=== PATIENT | male | born 1960 | race African-American/Black ===

== ENCOUNTER 2019-12-20 06:05 | Day surgery (SDC) | payer OTHER ==
[2019-12-18 17:07] VITALS: BMI 26.6
[2019-12-20] MEDS ORDERED: LIDOCAINE 1%-EPI 1:100,000 30 ML MDV IJ ONE (07:11)
[2019-12-20] MEDS ORDERED: BACITRACIN 15 GM TUBE TOPICAL OINTMENT ONE (07:11)
[2019-12-20] MEDS ORDERED: POVIDONE-IODINE OINTMENT 10% - 28.4 GM TUBE ONE (07:15)
[2019-12-20] MEDS ORDERED: BACITRACIN 15 GM TUBE TOPICAL OINTMENT TP ONE (07:39)
[2019-12-20] MEDS ORDERED: EPHEDRINE SULFATE/0.9% NACL/PF 50 MG/10 ML SYRINGE NR ONE (07:41)
[2019-12-20] MEDS ORDERED: MIDAZOLAM HCL 2 MG/2 ML SINGLE DOSE VIAL ONE (07:41)
[2019-12-20] MEDS ORDERED: ceFAZolin SODIUM 1 GM VIAL ONE (07:41)
[2019-12-20] MEDS ORDERED: PROPOFOL 20 ML ONE ×2 (07:41)
[2019-12-20] MEDS ORDERED: LIDOCAINE HCL/PF 2% SDV 5ML VIAL ONE (07:41)
--- NOTE | 2019-12-20 08:13 | HP ---
History & Physical Update - History History: No Change - Physical Physical: No Change - Assessment Assessment: No Change - Plan Plan: No Change
[2019-12-20] MEDS ORDERED: KETAMINE HCL 200 MG/20 ML VIAL ONE (08:19)
[2019-12-20] MEDS ORDERED: ceFAZolin SODIUM 1 GM VIAL IVPB ONE (08:26)
[2019-12-20] MEDS ORDERED: BENZOIN/ALOE VERA/STORAX/TOLU 58 ML BOTTLE ONE (08:48)
[2019-12-20] MEDS ORDERED: BENZOIN/ALOE VERA/STORAX/TOLU 58 ML BOTTLE TP ONE (08:50)
--- NOTE | 2019-12-20 09:07 | OP ---
Operative Note - Note: Operative Date: 12/20/19 Pre-Operative Diagnosis: right occipital mass Operation: Excision right occipital mass Findings: 3 cm fibrofatty mass, likely lipoma Post-Operative Diagnosis: Same as Pre-op Surgeon: Emir Melo Anesthesia: Local, MAC Specimens Removed: lipoma Estimated Blood Loss (mls): 1 Operative Report Dictated: Yes
[2019-12-20 09:31] VITALS: TEMP 97.7
[2019-12-20 10:27] VITALS: BP 120/70; PULSE 80
--- NOTE | 2019-12-20 11:23 | OP ---
DATE OF OPERATION: 12/20/2019 PROCEDURE: Excisional biopsy of occipital mass. PREOPERATIVE DIAGNOSIS: Right occipital mass. POSTOPERATIVE DIAGNOSIS: Right occipital mass. SURGEON: Emir Melo MD ANESTHESIA: Local with sedation. FINDINGS AND PROCEDURE: This is a 59-year-old male who presented with a slowly growing soft tissue mass of the occiput to the right of the midline. On physical exam patient has a 3- to 4-cm mass of the occipital area at the junction between the neck and the scalp. So patient was advised excisional biopsy of the mass and consent was obtained after discussing the risks, benefits and alternatives to the procedure. Patient was brought to the operating room and placed in supine or left lateral decubitus position. Intravenous sedation was given by the anesthesia team. Using lidocaine 1% with epinephrine local anesthesia was administered to the proposed incision site. Prior to that the operative site was prepped and draped in the usual sterile fashion. A 3-cm transverse incision over the mass was made using scalpel blade No. 15 with dissection carried down through the subcutaneous tissue. Further dissection using Bovie cautery was done and the superficial fascia was incised to enter the poorly encapsulated mass. The mass, which was fibrofatty in character, was carefully dissected away from its attachment to the posterior neck muscle. Afterwards hemostasis was achieved using Bovie cautery. The wound was closed with interrupted Vicryl 3-0 suture for the superficial fascia and subcuticular Monocryl suture for the skin. The wound closure was reinforced with Steri-Strips and covered with sterile dressing. Patient was transferred to the ambulatory surgery unit in satisfactory condition. Estimated blood loss was about 1 mL. Wound class clean. The patient received 1 g of Ancef prior to the start of the procedure. Malu [id number]
[2019-12-20] MEDS ORDERED: oxyCODONE HCL 5 MG TABLET PO PRN (11:24)
[2019-12-20] MEDS ORDERED: ONDANSETRON 4 MG/2 ML VIAL IVPUSH PRN (11:24)
[2019-12-20] MEDS ORDERED: LACTATED RINGERS SOLUTION 1,000 ML IV SCH (11:30)
--- NOTE | 2020-01-06 15:23 | PATH ---
Surgical Pathology Report Patient Name: DARIO PIZARRO Med. Rec. #: [id number] /Age/Gender: 1960 (Age: 59) / M Account: [id number] Location: [facility] Taken: 12/20/2019 Received: 12/20/2019 Reported: 12/23/2019 Physicians: Emir Melo M.D. Specimen(s) Received SOFT TISSUE MASS RIGHT OCCIPITAL Clinical History Right occipital soft tissue mass Final Diagnosis SOFT TISSUE MASS, OCCIPITAL, RIGHT, EXCISION: FIBROLIPOMA. Electronically Signed Linda Moya M.D. Gross Description Received in formalin labeled "soft tissue mass right occipital," is a 2.8 x 2.5 x 1.3 cm starkey-yellow soft tissue mass. Sectioning reveals homogeneous yellow, smooth fat. No areas of hemorrhage or necrosis are identified. Rn Provider Relations sections are submitted in 2 cassettes. DL/12/20/2019 saudi/12/20/2019
== END 2019-12-20 10:15 | disposition home or self-care (01) ==
LOC: JASU-SURG 06:05
PROVIDERS: ATTEND Surgery
PROC: 0JB40ZZ Excision of Right Neck Subcutaneous Tissue and Fascia, Open Approach (ICD-10-PCS; principal; 2019-12-20 08:00)
DX: D17.0 Benign lipomatous neoplasm of skin and subcutaneous tissue of head, face and neck (principal)
CPT/HCPCS: 88307-TC